=== PATIENT | female | born 1935 ===

== ENCOUNTER → 2017-02-15 | Outpatient (CLI) | payer OTHER | LOC: GIMAGING 11:24 | PROVIDERS: ATTEND Nurse Practitioner | DX: S62.636A Displaced fracture of distal phalanx of right little finger, initial encounter for closed fracture (principal) | CPT/HCPCS: 73140-PO ==

== ENCOUNTER → 2018-11-07 | Outpatient (CLI) | payer OTHER | LOC: GIMAGING 14:23 → EDSTATUS 16:36 | PROVIDERS: ATTEND Family Medicine | DX: J98.09 Other diseases of bronchus, not elsewhere classified (principal); I51.7 Cardiomegaly | CPT/HCPCS: 71046-PO ==